=== PATIENT | male | born 1940 | race Caucasian/White ===

== ENCOUNTER → 2017-02-20 | Outpatient (CLI) | payer OTHER ==
[~2017-02-20] MED LIST: ADULT LOW DOSE81 MG PO; ADVAIR HFA115 MCG/21 INH; ALEVE220 MG PO; ASPIR 8181 MG PO; ASPIRIN325 PO; ATENOLOL 50 MG50 M1 PO; ATENOLOL 50MG T50 M1 PO; ATIVAN0.5 MG PO; AUGMENTIN 875875 M1 OR; BUSPAR15 MG PO; BUSPIRONE HCL10 MG PO; DULERA 100 MCG/13 GM PO; ENDOCET 10-3251 EACH PO; FISH OIL 1,001000 M2 PO; FISH OIL 1,2001 EAC4 PO; FISHOIL PO; FLOMAX0.4 MG PO; HYTRIN10 MG PO; IMITREX 25 MG T25 MG PO; LIDODERM 5%1 PATC1 TRANSDERM; MIRALAX255 GM PO; NEURONTIN 300300 M1 PO; NORCO 5-325 TA1 EACH OR; NORCO 5-325 TA1 EACH PO; NORTRIPTYLINE H25 M3 PO; PAXIL10 MG PO; PLAVIX 75 MG TA75 MG PO; PROPRANOLOL 1010 MG PO; PROTONIX40 M2 PO; SPIRIVA; TERAZOSIN HCL10 MG PO; TRAMADOL 50 MG50 MG PO; TYLENOL PM EX-1 EACH PO; ULTRAM 50MG TAB50 MG PO; VALIUM5 MG PO; VITAMINC500 PO; VOLTAREN GEL 1100 G2 TOP; ZOCOR 10 MG TAB10 MG PO; ZOFRAN ODT8 MG PO
[2017-02-20 08:07] LABS: CREATININE 0.9 mg/dL (0.7-1.3)
== END ==
LOC: LAB 07:27
PROVIDERS: Nuclear Medicine Nuclear Cardiology
DX: I71.4 Abdominal aortic aneurysm, without rupture (principal); N28.1 Cyst of kidney, acquired; N40.0 Benign prostatic hyperplasia without lower urinary tract symptoms; Z90.49 Acquired absence of other specified parts of digestive tract

== ENCOUNTER → 2017-04-01 | Outpatient (CLI) | payer OTHER ==
[~2017-04-01] VITALS: Ht 188 cm; Wt 108.2 kg
[~2017-04-01] MED LIST changes: +IMITREX 50 MG T50 MG PO; +IMITREX20 MG NS
--- NOTE | ~2017-04-01 | HPC ---
[facility] [place] [address] [address] PAIN MANAGEMENT CONSULTATION Name: KIRBY BOWLING Room #: REG Heather White#: [id number] Admission: 04/01/17 Attend Phys: Perez Vieira DO Discharge: Date of : 39 Report #: [id number] THIS REPORT FOR: //name// CC: Oneil Vieira The patient is a very pleasant 76-year-old gentleman long known to the pain clinic, typically treated for cervical spondylosis, cervical radiculopathy, and greater occipital neuralgia. Last seen in the pain clinic 12/20/2016. He returns to pain clinic today, we again had a prolonged visit from 9:56-10:25. Greater than 50% of this nearly 30-minute visit was spent counseling the patient. In the interval since I last saw him, he did progress to have Botox injections 02/14/2017. He had trialed the nortriptyline that I prescribed on last visit (12/20/2016), but after several doses, he noted that this caused some untoward sedation. He has been using Imitrex that I had prescribed 25 mg at onset of significant headaches, status post the Botox injections (about 3 weeks past the Botox injections). He noted the frequency and intensity of the headaches seem to have decreased, though he still has several "bad" headaches. Fortunately, these did respond to the Imitrex; however, the patient noted it took several hours for efficacy. He presents to pain clinic today. Subjective pain score is fairly nominal, in fact he rates his pain 0 today. A 76-year-old gentleman, BMI is 30.6 kilograms per meter squared. Vital signs stable as noted in the EMR. Cervical range of motion is modestly limited. Ongoing pain in the neck, right side greater than left posterior occipital and cervical facet. Again, the patient has done very well with facet joint injections in the past and even RFL for some period of time. The last intervention 11/09/2016, right C1-C2 and C2-C3 cervical facet injections caused presyncopal type symptoms and we have elected not to proceed with any further intervention. ASSESSMENT: Symptomatic cervical spondylosis and cervical radiculopathy, greater occipital neuralgia, requiring complex medication management. RECOMMENDATION: We talked today at length about therapeutic options, I strongly recommend he continue with the Botox injections on likely at q. 3 month interval. It was reasonable to discontinue the nortriptyline. We will try increasing Imitrex to a 50 mg tablet. However, first I will write for Imitrex nasal 20 mg. This should have much more rapid onset; however, PDR lists 6 doses of Imitrex at $430 and 6 doses of nasal sumatriptan at $300. I have taken the liberty of writing for both prescriptions, both the Imitrex nasal and Imitrex [address] [address] PAIN MANAGEMENT CONSULTATION Name: KIRBY BOWLING BETH Room #: REG CRYSTAL White#: [id number] Admission: 04/01/17 Attend Phys: Perez Vieira DO Discharge: Date of : 39 Report #: [id number] mg, 6 doses each with 2 refills. I told him he can get one or the other filled whichever one is least expensive and better covered by his insurance. Same indications being 1 at the onset of headache, may repeat in 2 hours, maximum 2 in any 24-hour period. Otherwise, no further interventional therapies indicated. Discharged in good and stable condition. <ELECTRONICALLY SIGNED> By: Perez Vieira DO 04/03/17 0758 1602 2225 Perez Vieira DO /nt
[2017-04-01 09:53] VITALS: BP 128/83
== END | disposition home or self-care (01) ==
LOC: PAIN 06:45
DX: M47.892 Other spondylosis, cervical region (principal); M54.12 Radiculopathy, cervical region; G89.29 Other chronic pain; M54.81 Occipital neuralgia

== ENCOUNTER → 2018-01-30 | Outpatient (CLI) | payer OTHER | LOC: CAT 09:06 | DX: I71.4 Abdominal aortic aneurysm, without rupture (principal); Z90.49 Acquired absence of other specified parts of digestive tract; N40.0 Benign prostatic hyperplasia without lower urinary tract symptoms; N28.1 Cyst of kidney, acquired ==

== ENCOUNTER → 2018-11-28 | Outpatient (CLI) | payer OTHER ==
[~2018-11-28] VITALS: Ht 188 cm; Wt 106.6 kg
[~2018-11-28] MED LIST changes: +EFFEXOR XR75 MG PO; +TOPAMAX 25 MG T25 M1 PO
--- NOTE | ~2018-11-28 | HPC ---
[facility] [place] [address] PAIN MANAGEMENT CONSULTATION Name: KIRBY BOWLING Room #: REG CRYSTAL White#: [id number] Admission: 11/28/18 Attend Phys: Kerri Rivas MD Discharge: Date of : 39 Report #: [id number] THIS REPORT FOR: //name// CC: Oneil Rivas DATE OF SERVICE: 11/28/2018 CHIEF COMPLAINT: Still having lots of migraine headaches. HISTORY: The patient is a 78-year-old gentleman who has been followed in the Pain Clinic by Dr. Perez Vieira. This is my first time visiting with the patient. He has a history of cervical spondylosis and cervical radiculopathy combined with greater occipital neuralgia. The patient has had migraine headaches for quite some time. He has undergone a number of injections in the occipital area and those were beneficial. Because of the continued problem with this pain and the chronicity of it he was referred to physician and treated with Botox injections. He has had 6 Botox shocks. Last one was in August and the pain continues to be problematic. The patient has used Imitrex. Because of his heart condition and other things limitation of Imitrex has been sought. The patient has been seen in the past by Dr. Lord. He had spoken with him about the possibility of dorsal spinal cord stimulator. He was told that there is about a 50% chance that it will be helpful. The patient would like to have had better than 50%. He has returned to the Pain Clinic today to consider options. The patient is being treated by Dr. Ortega Miller. 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 The patient was taken off his Plavix, which he uses for chronic anticoagulation. There was a question as to whether or not he did develop a TIA symptoms. He did have some visual changes as well as some memory changes for a short period of time per his 's report. ALLERGIES: No known drug allergies. MEDICATIONS: Effexor XR 75 mg, Topamax 25 mg, which has been started. The patient is now taking 25 mg b.i.d., tramadol 50 mg q.4 hours p.r.n., Imitrex 50 mg as directed, Ativan 0.5 mg q hours p.r.n. anxiety, Paxil 10 mg, fish oil 1000 mg, aspirin 325 mg, he is no longer taking that medication has been stopped by Dr. Victoria and Dr. Crowe. Vitamin C 500 mg total 1000 mg, Tylenol Extra Strength caplets, Plavix 75 mg, Zocor 10 mg at bedtime, Protonix 40 mg PAIN CLINIC ASSESSMENT/PQRS 1. History of osteoarthritis involving the left lower extremity, left upper extremity, right upper extremity, right lower extremity. 2. Rheumatoid arthritis. The patient is [place] [address] PAIN MANAGEMENT CONSULTATION Name: KIRBY BOWLING Room #: REG CLHeather White#: [id number] Admission: 11/28/18 Attend Phys: Kerri Rivas MD Discharge: Date of : 39 Report #: [id number] 3. Height 6 feet 2 inches, weight 235 pounds, BMI is 30. 4. Vital signs: Blood pressure 127/85, pulse 61, respiratory rate 16, room air saturation 96%. 5. Pain intensity 10/10. 6. Fall risk. The patient has not fallen in the last 3 months. 7. Blood thinner. The patient is using Plavix, has a history of transient ischemic attacks. 8. Hypertension. The patient is being treated for hypertension. 9. Opioid greater than 6 weeks. The patient is taking tramadol. 10. Functional assessment tool 64/70. 11. Risk assessment tool, moderate for opioid use. 12. Functional assessment tool and that was 64/70 with that 13. Recreational drug use. The patient denies use of recreational drugs. 14. Tobacco: The patient is a former smoker. 15. Alcohol patient denies frequent use of alcoholic beverages. PHYSICAL EXAMINATION: GENERAL: The patient is a well-developed, well-nourished white male. Appears his stated age. He is accompanied by his . HEENT: Normocephalic, atraumatic. Extraocular eye muscles intact. Sclerae nonicteric. The patient has some pain and discomfort in the area of the right lesser occipital nerve. He states that he is having pain and is discomfort in that area that is why he oftentimes get Botox injections. HEART: Regular rate. ABDOMEN: Nontender. EXTREMITIES: Upper extremity muscle strength is judged to be 4+/5 for the major muscle groups. The patient has some tremulousness involving his hands. He uses hands go from a sitting to a standing position. He is reasonably stable on his feet. On lower extremity muscle strength is 4+/5 for the lower extremities. ASSESSMENT: 1. Chronic migraine headaches, treated with multiple medications in the past. 2. Symptomatic cervical spondylosis. 3. Greater occipital neuralgia. 4. History of cervical radiculopathy and chronic headaches. RECOMMENDATIONS: We discussed treatment options with the patient. At this juncture, the patient has been started on Topamax. We would recommend the patient continue with the Topamax and ____ it to the acceptable level to note its efficacy. The patient will also follow up with his doctor, who has been providing the Botox. He has somewhat of a difficult problem. He will follow up [facility] [address] [place] [address] PAIN MANAGEMENT CONSULTATION Name: KIRBY BOWLING [id number] Admission: 11/28/18 Attend Phys: Kerri Rivas MD Discharge: Date of : 39 Report #: [id number] in the Pain Clinic as needed. We would like to thank you for letting us participate in his care. We hope he continues to improve. By: [id number] Kerri Rivas MD /nt
[2018-11-28 09:36] VITALS: BP 127/85
--- NOTE | 2018-11-28 09:46 | NUR ---
Pain Clinic Assessment: 1. History of Osteoarthritis: Left Lower Extremity Left Upper Extremity Right Lower Extremity Right Upper Extremity History of Rheumatoid Arthritis: Not Applicable 2. Height: 6 ft. 2 in. 188.0 cm. Weight: 235.0 lb. oz. 106.596 kg. Patient's BMI: 30.2 3. Vital Signs: BP: 127/85 Pulse: 61 Resp: 16 Temp: 02 Sat: 96 ECG Mon: 4. Pain Intensity: 10 5. Fall Risk: Dizziness: N Needs help standing or walking: N Fallen in the last 3 months: N Fall risk comments: 6. Patient on Blood Thinner: Clopidogrel Bisulf(Plavix 7. History of Hypertension: Y 8. Opioid Therapy greater than 6 weeks: N Opiate Contract Signed: 9. Risk Assessment Tool Provided: mod 10. Functional Assessment Tool: 64/70 11. Recreational Drug Use: Never Drug Type: Tobacco Use: Former Smoker Tobacco Type: Amount or Packs/day: How Many Years: Alcohol Use: Past use Frequency: Quant:
== END ==
LOC: PAIN 06:50
DX: G43.909 Migraine, unspecified, not intractable, without status migrainosus (principal); M47.22 Other spondylosis with radiculopathy, cervical region; M54.81 Occipital neuralgia

== ENCOUNTER 2019-02-20 08:57 | Inpatient (IN) | payer OTHER ==
[~2019-02-20] VITALS: Ht 188 cm; Wt 104.6 kg
[2019-02-20] VITALS (14 sets, daily range): BP systolic 120–170; BP diastolic 55–107
[2019-02-20 09:31] LABS: ABSOLUTE NEUTROPHILS 3.7 thou/uL (1.4-8.2); BASOPHILS 0.8 % (0.0-2.0); EOSINOPHILS 6.9 % (0.0-3.0); HEMATOCRIT 41.1 % (42.0-52.0); HEMOGLOBIN 14.2 gm/dL (14.0-18.0); LYMPHOCYTES 20.8 % (24.0-44.0); MCH 30.6 pg (26.0-34.0); MCHC 34.6 g/dL (28.0-37.0); MCV 88.5 fL (80.0-100.0); MONOCYTES 11.2 % (1.0-8.0); PLATELET COUNT 244 thou/uL (150-400); POLYS 60.3 % (36.0-66.0); RBC 4.64 mil/uL (4.50-6.00); RDW 13.7 % (10.5-14.5); WBC 6.1 thou/uL (4.0-11.0)
[2019-02-20 09:39] LABS: ANION GAP 8 mmol/L (7-16); BUN 11 mg/dL (7-18); CALCIUM 9.2 mg/dL (8.5-10.1); CHLORIDE 99 mmol/L (98-107); CO2 27 mmol/L (21-32); CREATININE 0.9 mg/dL (0.7-1.3); GLUCOSE 102 mg/dL (74-106); POTASSIUM 4.1 mmol/L (3.5-5.1); SODIUM 134 mmol/L (136-145)
[2019-02-20 09:47] LABS: ALBUMIN 3.6 g/dL (3.4-5.0); SGOT 21 U/L (15-37); SGPT 25 U/L (30-65); TOTAL BILIRUBIN 0.5 mg/dL (<0.1-1.0); TOTAL PROTEIN 6.6 g/dL (6.4-8.2); TROPONIN-I <0.06 ng/mL (<0.06)
[2019-02-20 09:57] LABS: APTT 24.7 Seconds (24.5-32.8); PROTIME 10.7 Seconds (9.3-11.4)
--- NOTE | 2019-02-20 12:19 | NUR ---
SPOKE WITH CHAN IN ICU; WILL CALL ME BACK RN TAKING PT JUST RETURNED FROM MRI
[2019-02-20] MEDS ORDERED: PROPRANOLOL 1010 MG PO (12:44)
[2019-02-20] MEDS ORDERED: ADVAIR 250-501 EACH INH (13:12)
[2019-02-20] MEDS ORDERED: VENLAFAXINE HCL75 M1 PO (13:13)
[2019-02-20] MEDS ORDERED: CHILDREN'S ASPI81 M1 PO (13:14)
--- NOTE | 2019-02-20 18:21 | NUR ---
ASSUMED CARE OF PT. FROM ED AT 1300. PT. GIVEN TPA IN ED. PT. IS ALERT AND OREINTED X4, PLEASANT AND COOPERATIVE. NEUROLOGICAL FUNCTION REMAINS INTACT. NIH PROTOCOL FOLLOWED, NIH REMAINS 0. ASSESSMENTS AND VITAL SIGNS CHARTED. PT. AND FAMILY EDUCATED IN ICU PROTOCOLS. PLAN OF CARE IS TO CONTINUE TO MONITOR PER NIH PROTOCOL. WILL CONTINUE TO MONITOR.
[2019-02-21] VITALS (18 sets, daily range): BP systolic 99–155; BP diastolic 54–81
--- NOTE | 2019-02-21 07:28 | NUR ---
ASSUMED CARE OF PT AT 2330, PT REMAINS ALERT AND ORIENTED ABLE TO WATTS, NIH SCORE 0, VITALS WNL, NO ACUTE CHANGES.
[2019-02-21] MEDS ORDERED: MILK OF MA2400 MG/11 PO (15:21)
--- NOTE | 2019-02-21 17:48 | NUR ---
Assumed care of patient at 0700. Patient c/o headache and baseline migraine pain this mornin, resolved with home med Imitrex. NIH assessments remain 0. Up to chair and ambulating in room. Worked with PT/OT without difficulty. Seen by Neuro, down for repeat CT scan as ordered. Results reviewed by Dr. Costello. Ok'd for discharge by both neuro and hospitalist. Education reviewed bedside with Candida present. They will expect follow up call from Dr. Costello's office Saturday. Patient taken by wheelchair to private vehicle with all personal belongings. PIV removed.
--- NOTE | 2019-02-22 12:32 | HC ---
[facility] [place] [address] CONSULTATION Name: KIRBY BOWLING Room #: 240-P [facility] IN M.R.#: [id number] Admission: 02/20/19 ������������������ Attend Phys: Bj Farley MD Discharge: 02/21/19 ������������������ Date of : 39 Report #: [id number] THIS REPORT FOR: //name// CC: Oneil Farley HISTORY OF PRESENT ILLNESS: The patient is a 78-year-old male who on began to experience a headache. The patient has intermittent right occipital headaches, for this he has received occipital nerve blocks with lidocaine and has been getting Botox injections just in that area. In the past 2 years or so, he has had approximately 7 or 8 of these injections; however, he also told me he only gets these injections every 6 months. Yesterday, the patient woke up with difficulty speaking. He was able to carry on a conversation, but had some difficulty coming up with all the words. He asked his to bring him to the Emergency Room and sometime after that his symptoms returned to normal. I saw the patient on his last admission here and explained that his symptoms were not from TIA, but secondary to his headaches. In the Emergency Room, the patient was evaluated and received TPA. PAST MEDICAL HISTORY: Anxiety, gastroesophageal reflux, hyperlipidemia, COPD, migraine headache. PAST SURGICAL HISTORY: Tonsillectomy, aortic stent, appendectomy, left ankle surgery, left inguinal hernia repair, septoplasty abdominal stents placed, bladder tumor excision, colon resection, bilateral cataract surgery, umbilical hernia repair. MEDICATIONS AT HOME: Lorazepam 0.5 mg b.i.d., pantoprazole 40 mg daily, simvastatin 10 mg at bedtime, Plavix 75 mg daily, Tylenol p.r.n., vitamin C 1000 units daily, aspirin 325 mg at bedtime, fish oil 1000 mg daily, Paxil 12.5 mg daily, tramadol 50 mg p.r.n., topiramate 25 mg b.i.d., venlafaxine 75 mg daily. ALLERGIES: None. VITAL SIGNS: Temperature 37.1, pulse rate 62, respiratory rate 12, blood pressure 139/81, bedside pulse oximetry 96% on room air. LABORATORY DATA: White blood cell count 6.1, hemoglobin 14.2, hematocrit 41.1, MCV 88.5, platelet count 244,000. Chemistry: Sodium 134, potassium 4.1, chloride 99, carbon dioxide 27, BUN 11, creatinine 0.9, GFR 81, glucose 102. IMAGING STUDIES: CT scan of the head demonstrates age-related atrophy and mild [address] [address] CONSULTATION Name: KIRBY BOWLING BETH Room #: [facility] IN M.R.#: [id number] Admission: 02/20/19 ������������������ Attend Phys: Bj Farley MD Discharge: 02/21/19 ������������������ Date of : 39 Report #: [id number] chronic microvascular ischemia, left cerebellar asymmetric hypoattenuation, possibly artifact or normal variation seen. NEUROLOGIC EXAMINATION: Cranial nerves 2-12 are grossly intact. Motor exam demonstrates symmetrical strength in all 4 extremities with tone and bulk normal. Reflexes are symmetrical throughout. Coordination reveals intact finger to nose. IMPRESSION AND PLAN: This patient has migraine headache. He also has a component of occipital neuralgia and has tenderness over the occipital notch. I am not sure how often the patient is actually getting Botox, but if he is being given Botox every 6 months, then he is not getting it often enough. The other issue is that he tells me he has 10-12 headaches in a month and is not a candidate for Botox and I do think that getting a localized Botox injection in the area of the occipital nerve is going to be helpful. We could try repeating as an outpatient an occipital nerve block with a steroid combined. I am also going to see if I can find a simple headache diary for his , so that all she has to do is squaxin the dates he has a headache instead of taking the notes that she is taking when he has a headache. Depending on his insurance, he could be a candidate for one of the CGRP inhibitors like Emgality or Aimovig. Also, I see that the patient is on topiramate or had been on topiramate. If he is taking topiramate now, which I saw on his list from the Emergency Room, but do not see prescribed in the hospital, this can also cause word finding difficulty and paresthesias. I thank you for your kind referral of the patient. ��������������������������������������������� <ELECTRONICALLY SIGNED> ���������������������������������������� By: Conchita Costello DO ��������������������������������������������� 02/22/19 1232 1028 2223 Conchita Costello DO /nt
--- NOTE | 2019-02-22 13:13 | EKG ---
[address] [place] [address] ELECTROCARDIOGRAM REPORT Name: KIRBY BOWLING Room #: [facility] M.R.#: [id number] ������������������ Admission: 02/20/19 ������������������ Attend Phys: Bj Farley MD Discharge: 02/21/19 ������������������ Date of : 39 Report #: [id number] ����������������������������������������������������������������� [id number] THIS REPORT FOR: //name// [facility] ED Test Date: 2019-02-20 Test Time: 09:45:39 Pat Name: KIRBY BOWLING Department: Room: [facility] Gender: M Business Manager: sherri : 1940 Requested By: Justin Guerrero Order Number: [id number] MD: Jerman Johns Measurements Intervals [place] Rate: 56 P: 28 DE: 198 QRS: -27 QRSD: 101 T: 53 QT: 444 QTc: 429 Interpretive Statements Sinus rhythm Left ventricular hypertrophy Compared to ECG 11/09/2016 11:00:58 Left ventricular hypertrophy now present Sinus bradycardia no longer present Electronically Signed On 02-22-2019 13:13:41 CDT by Jerman Johns [email or web address] ��������������������������������������������� <ELECTRONICALLY SIGNED> ���������������������������������������� By: Jerman Johns MD, [facility] ��������������������������������������������� 02/22/19 1313 0945 0945 Jerman Johns MD, [facility] /EPI
== END 2019-02-21 17:00 | disposition home or self-care (01) | DRG 62 ==
LOC: ER 08:57 → EROBS 10:57 → ICU 12:34
PROVIDERS: Emergency Medicine; ADMIT Internal Medicine
DX: I63.9 Cerebral infarction, unspecified (principal); G93.40 Encephalopathy, unspecified; K21.9 Gastro-esophageal reflux disease without esophagitis; J44.9 Chronic obstructive pulmonary disease, unspecified; I10 Essential (primary) hypertension; E78.00 Pure hypercholesterolemia, unspecified; F41.9 Anxiety disorder, unspecified; E78.5 Hyperlipidemia, unspecified; R47.1 Dysarthria and anarthria; G25.0 Essential tremor; G43.909 Migraine, unspecified, not intractable, without status migrainosus; M54.81 Occipital neuralgia; Z95.828 Presence of other vascular implants and grafts; Z90.49 Acquired absence of other specified parts of digestive tract; Z98.42 Cataract extraction status, left eye; Z98.41 Cataract extraction status, right eye; Z86.73 Personal history of transient ischemic attack (TIA), and cerebral infarction without residual deficits; Z87.891 Personal history of nicotine dependence
CPT/HCPCS: 10078

== ENCOUNTER 2019-03-31 16:45 | Inpatient (IN) | payer OTHER ==
[~2019-03-31] VITALS: Ht 188 cm; Wt 105.8 kg
[~2019-03-31 16:45] MED LIST changes: +ADVAIR 250-501 EACH INH; +CHILDREN'S ASPI81 M1 PO; +MILK OF MA2400 MG/11 PO; +VENLAFAXINE HCL75 M1 PO
[2019-03-31 17:19] LABS: HEMATOCRIT 43.1 % (42.0-52.0); HEMOGLOBIN 14.8 gm/dL (14.0-18.0); MCH 30.6 pg (26.0-34.0); MCHC 34.3 g/dL (28.0-37.0); MCV 89.2 fL (80.0-100.0); PLATELET COUNT 239 thou/uL (150-400); RBC 4.84 mil/uL (4.50-6.00); RDW 13.2 % (10.5-14.5); WBC 6.7 thou/uL (4.0-11.0)
[2019-03-31 17:27] LABS: ANION GAP 7 mmol/L (7-16); BUN 12 mg/dL (7-18); CALCIUM 9.2 mg/dL (8.5-10.1); CHLORIDE 102 mmol/L (98-107); CO2 26 mmol/L (21-32); CREATININE 1.1 mg/dL (0.7-1.3); GLUCOSE 122 mg/dL (74-106); SODIUM 135 mmol/L (136-145)
[2019-03-31 17:36] LABS: TROPONIN-I <0.06 ng/mL (<0.06)
[2019-03-31 17:41] LABS: APTT 24.3 Seconds (24.5-32.8)
[2019-03-31 17:55] LABS: ABSOLUTE NEUTROPHILS 3.3 thou/uL (1.4-8.2)
[2019-03-31 20:45] VITALS: BP 170/94
[2019-03-31 22:03] VITALS: BP 136/74
[2019-03-31 22:20] VITALS: BP 139/95
[2019-03-31 22:58] LABS: TSH 0.903 uIU/mL (0.358-3.740)
[2019-04-01 00:19] VITALS: BP 140/68
[2019-04-01 05:39] VITALS: BP 136/68
[2019-04-01 05:45] LABS: HEMATOCRIT 40.4 % (42.0-52.0); HEMOGLOBIN 13.8 gm/dL (14.0-18.0); MCH 30.5 pg (26.0-34.0); MCHC 34.2 g/dL (28.0-37.0); MCV 89.3 fL (80.0-100.0); RBC 4.52 mil/uL (4.50-6.00); RDW 13.2 % (10.5-14.5); WBC 7.7 thou/uL (4.0-11.0)
[2019-04-01 05:59] LABS: CALCIUM 8.6 mg/dL (8.5-10.1); CREATININE 0.8 mg/dL (0.7-1.3); POTASSIUM 3.7 mmol/L (3.5-5.1)
[2019-04-01 07:14] VITALS: BP 144/99
--- NOTE | 2019-04-01 08:19 | EKG ---
[address] [address] ELECTROCARDIOGRAM REPORT Name: KIRBY BOWLING Room #: 363-P ADM IN M.R.#: [id number] ������������������ Admission: 03/31/19 ������������������ Attend Phys: Bj Farley MD Discharge: ������������������ Date of : 38 Report #: [id number] ����������������������������������������������������������������� [id number] THIS REPORT FOR: //name// [facility] ED Test Date: 2019-03-31 Test Time: 19:10:14 Pat Name: KIRBY BOWLING Department: Room: 363 Gender: M Auto Inspection Specialist: JACINTA : 1940 Requested By: Aye Valdez Order Number: [id number] MD: Jung Bartlett Measurements Intervals [place] Rate: 76 P: 14 AL: 217 QRS: -37 QRSD: 101 T: 58 QT: 392 QTc: 441 Interpretive Statements Sinus rhythm Borderline prolonged AL interval Abnormal R-wave progression, early transition Left ventricular hypertrophy Baseline wander in lead(s) V3 Compared to ECG 02/20/2019 09:45:39 No significant changes Electronically Signed On 04-01-2019 8:18:57 CDT by Jung Bartlett [email or web address] ��������������������������������������������� <ELECTRONICALLY SIGNED> ���������������������������������������� By: Jung Bartlett MD ��������������������������������������������� 04/01/19817 09 09 Jung Bartlett MD /EPI
[2019-04-01 11:13] VITALS: BP 141/81
--- NOTE | 2019-04-01 13:07 | 2DMMODE ---
[facility] [place] [place] [address] [place] [address] 2 D/M-MODE ECHOCARDIOGRAM Name: KIRBY BOWLING BETH Room #: 363-P ADM IN M.R.#: [id number] ������������� Admission: 03/31/19 ������������� Attend Phys: Bj Farley MD Discharge: ��� ������������� ��� Date of : 38 Date of Service: 04/01/19 1307 �� Report #: [id number] �������� ��������������������������������������������[id number] THIS REPORT FOR: //name// APPROVED REPORT Study performed: 04/01/2019 12:08:04 EXAM: Comprehensive 2D, Doppler, and color-flow Echocardiogram Patient Location: Echo lab Room #: 363 Status: routine BSA: 2.32 HR: 57 bpm BP: 144/99 mmHg Rhythm: Bradycardia Other Information Study Quality: Good Indications COPD CVA/TIA Hypertension/HDD Echo Enhancing Agent Indication: Rule out Shunt Agent(s) / Amount(s) Used: Agitated Saline 7 cc 2D Dimensions RVDd: 38.04 mm IVSd: 13.86 (7-11mm) LVOT Diam: 25.70 (18-24mm) LVDd: 44.27 mm PWd: 13.69 (7-11mm) LVDs: 30.07 (25-40mm) Aortic Root: 44.30 mm Volumes Left Atrial Volume (Systole) Single Plane 4CH: 91.12 mL Single Plane 2CH: 87.14 mL LA ESV Index: 44.00 mL/m2 Aortic Valve AoV Peak Dandre.: 0.98 m/s AO Peak Gr.: 3.85 mmHg LVOT Max P.74 mmHg LVOT Max V: 0.97 m/s [facility] [place] [place] [address] [place] [address] 2 D/M-MODE ECHOCARDIOGRAM Name: KIRBY BOWLING BETH Room #: 363-P [facility] IN .R.#: [id number] ������������� Admission: 03/31/19 ������������� Attend Phys: jB Farlye MD Discharge: ��� ������������� ��� Date of : 38 Date of Service: 04/01/19 1307 �� Report #: [id number] �������� ��������������������������������������������[id number] ELISABETH Vmax: 5.11 cm2 Mitral Valve E/A Ratio: 0.6 MV Decel. Time: 309.98 ms MV E Max Dandre.: 0.33 m/s MV A Dandre.: 0.53 m/s MV PHT: 89.90 ms IVRT: 179.93 ms Pulmonary Valve PV Peak Dandre.: 0.99 m/s PV Peak Gr.: 3.94 mmHg Pulmonary Vein P Vein S: 0.65 m/s P Vein A: 0.26 m/s P Vein D: 0.33 m/s P Vein A Dur.: 110.7 msec P Vein S/D Ratio: 1.97 Left Ventricle The left ventricle is normal size. There is normal LV segmental wall motion. Mild concentric left ventricular hypertrophy. Left ventricular systolic function is normal. The left ventricular ejection fraction is within the normal range. LVEF is 55-60%. Mild diastolic dysfunction is present (impaired relaxation pattern). Right Ventricle The right ventricle is normal size. The right ventricular systolic function is normal. Atria Left atrium is dilated. No shunting by contrast bubble injection The right atrium size is normal. Aortic Valve The aortic valve is trileaflet, mildly sclerotic. Mild aortic regurgitation. There is no aortic valvular stenosis. Mitral Valve The mitral valve is normal in structure. Mild mitral regurgitation. No evidence of mitral valve stenosis. Tricuspid Valve The tricuspid valve is normal in structure. There is no tricuspid valve regurgitation noted. [facility] [place] [place] [address] [place] [address] 2 D/M-MODE ECHOCARDIOGRAM Name: KIRBY BOWLING COTULLA Room #: 363-P [facility] IN M.R.#: [id number] ������������� Admission: 03/31/19 ������������� Attend Phys: Bj Farley MD Discharge: ��� ������������� ��� Date of : 38 Date of Service: 04/01/19 1307 �� Report #: [id number] �������� ��������������������������������������������[id number] Pulmonic Valve The pulmonary valve is normal in structure. There is no pulmonic valvular regurgitation. Great Vessels The aortic root is normal in size. The ascending aorta is mildly dilated (4.0cm) IVC is normal in size and collapses >50% with inspiration. Pericardium There is no pericardial effusion. <Conclusion> Left ventricular systolic function is normal. There is normal LV segmental wall motion. LVEF is 55-60%. Mild diastolic dysfunction No shunting by contrast bubble injection The aortic valve is trileaflet, mildly sclerotic. Mild aortic regurgitation, no stenosis. The mitral valve is normal in structure. Mild mitral regurgitation. The ascending aorta is mildly dilated (4.0cm) There is no pericardial effusion. ��������������������������������������������� <ELECTRONICALLY SIGNED> ���������������������������������������� By: Jerman Johns MD, [facility] ��������������������������������������������� 04/01/19 1307 06 130 Jerman Johns MD, FAC /INF
--- NOTE | 2019-04-01 13:55 | HC ---
[facility] [place] [address] CONSULTATION Name: KIRBY BOWLING Room #: 363-P ADM IN M.R.#: [id number] Admission: 03/31/19 ������������������ Attend Phys: Bj Farley MD Discharge: ������������������ Date of : 38 Report #: [id number] THIS REPORT FOR: //name// CC: NO BRITNEY Farley DATE OF SERVICE: 03/31/2019 HISTORY OF PRESENT ILLNESS: This is a 78-year-old male patient who has an onset of altered mental status around noon. He also has word finding difficulty. He is unable to do many things, which he was able to do before. He had multiple episodes like this. The first one was in 2006. Last one was in February of this year. He did have MRIs in 2012 and looks like MRI was attempted in 2016, but the patient was unable to do that. He had a CT stroke protocol ordered, but I do not see any results of that in 2016. On initial conversation with the family, they indicated that the patient has good memory, but then when further history is taken, it looks like the memory is somewhat impaired even in the baseline. They indicated he used to be on Topamax and that was recently discontinued because of the memory issues. So, I suspect he is having baseline memory problems. He has been diagnosed with occipital migraine and he is receiving calcitonin antagonist, but he has discontinued Topamax. He does have vascular disease and he follows up with Dr. Crowe and he has stent put in even in aorta. He does have tremors in the hands and he follows up with Dr. Miller who is the neurologist at [facility]. He has a colon resection. He has been to the pain management. The patient did take Imitrex today. PAST MEDICAL HISTORY: Positive for similar spells. FAMILY HISTORY: Negative for early age stroke. SOCIAL HISTORY: He does not use alcohol. PHYSICAL EXAMINATION: Indicates that he tells me this is February. He was able to tell me that he is in [facility] and Sheri is president, but it took him a lot of effort to name both of them. His cranial nerve examination appears unremarkable. Neuromuscular examinations appear unremarkable. Examination was carried in a hurry because of the time constraint. LABORATORY DATA: Reviewed and his BUN and creatinine is okay. IMPRESSION AND PLAN: The patient carries a diagnosis of occipital migraine. He also has pretty significant vascular disease. Migraine is a diagnosis of exclusion. Therefore, it will be desirable to do some workup to make sure no other concomitant pathology has arisen. I discussed that aspect with the [address] [place] [address] CONSULTATION Name: KIRBY BOWLING BETH Room #: 363-P ADM IN M.R.#: [id number] Admission: 03/31/19 ������������������ Attend Phys: Bj Farley MD Discharge: ������������������ Date of : 38 Report #: [id number] family. I discussed with them CT angio versus MRI. MRI is already ordered by Emergency Room physician and I asked them to check with MRI people to make sure there is no contraindication for doing an MRI. If the patient can do an MRI that will be a preferred test to see if he is having some small stroke and if there is any blockage in his large vessels. If he cannot do an MRI, then he will need CT stroke protocol with CT perfusion. We discussed with them TPA. His symptoms started more than 4-1/2 hour ago, so he is outside the window for TPA. We can look at the scan and see what the scan shows if scans can be done. I did discuss with them that Imitrex is not recommended for vasospastic migraine. I also talked to them that other etiologies including nonconvulsive seizures and TIAs need to be excluded in this patient. I will reevaluate this patient after all this workup is done. All of it was discussed in detail with the patient as well as with the Emergency Room physician. this addendum is being added at the time of signing this report. Patient did not complete the MRI. I reviewed the films. Prior to that I talked to the MRI and they indicated that stent is not a contraindication for MRI and there was no contraindication and they had proceeded with that MRI. Because of that I went head and did a CT angiogram . All of it was done to see if there is any intervention which can be done. Ultimately no intervention could be done. This is because the patient was outside the window for TPA and there was no indication to do thrombectomy. Time spent 50 minutes. Half of that time counseling and coordinating. I extensively talked to the family about all the above and they were agreeable with that ��������������������������������������������� <ELECTRONICALLY SIGNED> ���������������������������������������� By: Fermin Hale MD ��������������������������������������������� 04/01/19 1355 [id number] Fermin Hale MD /nt
[2019-04-01 19:33] VITALS: BP 157/80
[2019-04-01 23:29] VITALS: BP 139/84
[2019-04-02 04:59] VITALS: BP 134/69
[2019-04-02 07:57] VITALS: BP 162/82
[2019-04-02] MEDS ORDERED: TOPAMAX 25 MG T25 M1 PO (13:45)
[2019-04-02 13:53] VITALS: BP 162/82
--- NOTE | 2019-04-03 14:07 | EEG ---
[facility] [place] [address] ELECTROENCEPHALOGRAM Name: KIRBY BOWLING Room #: 363-P DIS IN M.R.#: [id number] ������������������ Admission: 03/31/19 ������������������ Attend Phys: Bj Farley MD Discharge: 04/02/19 ������������������ Date of : 38 Report #: [id number] ����������������������������������������������������������������� [id number] THIS REPORT FOR: //name// CC: NO PCP Bj Farley DATE OF SERVICE: 04/01/2019 This patient keeps having episode where he keeps having speech difficulty. EEG was done to evaluate that further. EEG was done by placing the electrode by standard 10-20 system of electrode placement. Both referential and sequential montages were used for recording. Background activity in this patient's EEG is about 8 Hz and 30 microvolt on the right side. The voltage is lower on the left side. EEG also appeared to be less well formed on the left side. Photic stimulation was unremarkable. No active epileptiform activity was noticed during this record. IMPRESSION: This patient's EEG demonstrates higher voltage on the right side as compared to the left side. Higher voltage on the right side is a normal finding, but this looks more than expected and EEG also appeared to be somewhat less formed on the left side as compared to the right side. This may be all normal variation, but slight asymmetry is there. No clear-cut epileptiform activity was noticed during this record. Thank you very much for this referral. ���������������������������������������� <ELECTRONICALLY SIGNED> ���������������������������������������� By: Fermin Hale MD ��������������������������������������������� 04/03/19 1407 [id number] MD yuliet Fan
== END 2019-04-02 15:27 | disposition home or self-care (01) | DRG 69 ==
LOC: ER 16:45 → 3W 20:51 → EROBS 20:51 → 3W 22:03 → ENTRNSPT 04-02 14:44 → EDTRNSPTSTS 04-02 14:54 → 3W 04-02 15:27
PROVIDERS: Nurse Practitioner; Student in an Organized Health Care Education/Training Program; ADMIT Internal Medicine
DX: G45.9 Transient cerebral ischemic attack, unspecified (principal); R47.01 Aphasia; N17.9 Acute kidney failure, unspecified; K21.9 Gastro-esophageal reflux disease without esophagitis; J44.9 Chronic obstructive pulmonary disease, unspecified; I10 Essential (primary) hypertension; E78.00 Pure hypercholesterolemia, unspecified; G43.909 Migraine, unspecified, not intractable, without status migrainosus; E78.5 Hyperlipidemia, unspecified; G25.0 Essential tremor; F41.9 Anxiety disorder, unspecified; F32.9 Major depressive disorder, single episode, unspecified; Z87.891 Personal history of nicotine dependence; Z79.82 Long term (current) use of aspirin; Z79.899 Other long term (current) drug therapy; Z90.49 Acquired absence of other specified parts of digestive tract; Z95.828 Presence of other vascular implants and grafts; Z98.42 Cataract extraction status, left eye; Z98.41 Cataract extraction status, right eye
CPT/HCPCS: 10879

== ENCOUNTER → 2019-12-29 | Outpatient (CLI) | payer OTHER | LOC: SJCVC 10:16 | DX: I44.0 Atrioventricular block, first degree (principal); I11.9 Hypertensive heart disease without heart failure; R94.31 Abnormal electrocardiogram [ECG] [EKG]; I25.10 Atherosclerotic heart disease of native coronary artery without angina pectoris; E78.00 Pure hypercholesterolemia, unspecified; J44.9 Chronic obstructive pulmonary disease, unspecified; K21.9 Gastro-esophageal reflux disease without esophagitis; Z90.49 Acquired absence of other specified parts of digestive tract; Z98.890 Other specified postprocedural states; Z79.899 Other long term (current) drug therapy; Z86.79 Personal history of other diseases of the circulatory system ==

== ENCOUNTER → 2020-01-20 | Outpatient (CLI) | payer OTHER | LOC: SJCVCINTER 10:51 | DX: I65.23 Occlusion and stenosis of bilateral carotid arteries (principal); Z87.891 Personal history of nicotine dependence ==

== ENCOUNTER → 2020-10-27 | Outpatient (CLI) | payer OTHER | LOC: SJCVC 10:29 | PROVIDERS: ATTEND Internal Medicine Cardiovascular Disease | DX: I51.7 Cardiomegaly (principal); I10 Essential (primary) hypertension; I25.10 Atherosclerotic heart disease of native coronary artery without angina pectoris; I77.9 Disorder of arteries and arterioles, unspecified; I71.4 Abdominal aortic aneurysm, without rupture; E78.00 Pure hypercholesterolemia, unspecified; Z98.890 Other specified postprocedural states ==

== ENCOUNTER → 2021-07-10 | Outpatient (CLI) | payer OTHER | LOC: SJCVCIMAG 07:18 | PROVIDERS: ATTEND Internal Medicine Cardiovascular Disease | DX: I65.23 Occlusion and stenosis of bilateral carotid arteries (principal); R94.31 Abnormal electrocardiogram [ECG] [EKG]; I11.9 Hypertensive heart disease without heart failure; I25.10 Atherosclerotic heart disease of native coronary artery without angina pectoris; I71.4 Abdominal aortic aneurysm, without rupture; I10 Essential (primary) hypertension; E78.00 Pure hypercholesterolemia, unspecified; I77.9 Disorder of arteries and arterioles, unspecified; J44.9 Chronic obstructive pulmonary disease, unspecified; K21.9 Gastro-esophageal reflux disease without esophagitis; Z95.828 Presence of other vascular implants and grafts; Z90.49 Acquired absence of other specified parts of digestive tract; Z98.890 Other specified postprocedural states; Z88.8 Allergy status to other drugs, medicaments and biological substances; Z79.82 Long term (current) use of aspirin; Z79.899 Other long term (current) drug therapy; Z86.79 Personal history of other diseases of the circulatory system; Z86.73 Personal history of transient ischemic attack (TIA), and cerebral infarction without residual deficits; Z87.891 Personal history of nicotine dependence; Z82.49 Family history of ischemic heart disease and other diseases of the circulatory system ==

== ENCOUNTER → 2021-07-28 | Outpatient (CLI) | payer OTHER | LOC: CAT 09:33 | PROVIDERS: ATTEND Internal Medicine Cardiovascular Disease | DX: Z01.812 Encounter for preprocedural laboratory examination (principal); I71.4 Abdominal aortic aneurysm, without rupture; Z95.828 Presence of other vascular implants and grafts; N28.1 Cyst of kidney, acquired; K40.90 Unilateral inguinal hernia, without obstruction or gangrene, not specified as recurrent ==